=== PATIENT | male | born 1990 | race Caucasian/White ===

== ENCOUNTER 2017-04-05 15:02 | Inpatient (IN) | payer SELFPAY ==
[~2017-04-05] VITALS: Ht 165.1 cm; Wt 106.6 kg
[2017-04-05 15:05] VITALS: BP_SYST 181
--- NOTE | 2017-04-05 15:05 | NUR ---
Placed in room 08 . Placed on desk monitor, blood pressure machine and pulse oximeter. To gown for exam. Side rails up. Report given to Camden NICK
--- NOTE | 2017-04-05 15:10 | NUR ---
ER at bedside examining patient.
[2017-04-05] MEDS ORDERED: FOLIC ACID 1 MG, THIAMINE HCL 100 MG, MAGNESIUM SULFATE 1 GM, MVI 10 ML in NACL 0.9% 1,... IV ONE (15:15)
--- NOTE | 2017-04-05 15:15 | NUR ---
Pt presents to ER c/o sob, numbness in bilateral upper and lower extremities, and neck pain. Pt reports excessive alcohol consumption over the past few days. Pt rates pain 10/10. Pt denies any significant mecdial history. Pt in no acute respiratory distress; AOX4; NKDA; family at bedside.
[2017-04-05] MEDS ORDERED: LORazepam 2 MG/ML VIAL (FOR ER USE) IVP ONE (15:45)
[2017-04-05 15:48] LABS: EOSINOPHILS # (AUTO) 0.2 K/uL (0.0-0.4); MONOCYTES # (AUTO) 0.8 K/uL (0.0-1.0); RED CELL DISTRIBUTION WIDTH 11.4 % (9.0-15.0)
--- NOTE | 2017-04-05 16:00 | NUR ---
Patient transported to radiology via gurney, accompanied by rad staff.
[2017-04-05] MEDS ORDERED: THIAMINE HCL 100 MG/ML VIAL ONE (16:09)
[2017-04-05] MEDS ORDERED: FOLIC ACID 5 MG/ML VIAL IV ONE (16:09)
[2017-04-05] MEDS ORDERED: MVI 10 ML VIAL IV ONE (16:09)
[2017-04-05] MEDS ORDERED: MAGNESIUM SULFATE 1 GM/2 ML VIAL ONE (16:09)
[2017-04-05 16:28] LABS: BASOPHILS % (AUTO) 0.3 % (0.0-2.0); EOSINOPHILS % (AUTO) 1.6 % (0.0-4.0); HEMATOCRIT 50.6 % (36-54); HEMOGLOBIN 17.1 g/dL (14.0-18.0); LYMPHOCYTES # (AUTO) 0.6 K/uL (1.0-5.5); LYMPHOCYTES % (AUTO) 6.2 % (20.5-51.5); MEAN CORPUSCULAR HEMOGLOBIN 32 pg (27-31); MEAN CORPUSCULAR HGB CONC 34 % (32-36); MEAN CORPUSCULAR VOLUME 95 fL (79.0-98.0); MONOCYTES % (AUTO) 8.1 % (1.7-9.3); NEUTROPHILS # (AUTO) 8.2 K/uL (1.8-7.7); NEUTROPHILS % (AUTO) 83.8 % (40.0-70.0); PLATELET COUNT (AUTO) 254 K/uL (130-430); RED BLOOD CELL COUNT(AUTO) 5.33 MIL/uL (4.2-6.2); WHITE BLOOD COUNT (AUTO) 9.8 K/uL (4.8-10.8)
--- NOTE | 2017-04-05 16:30 | NUR ---
Returned from radiology, back to [facility].
--- NOTE | 2017-04-05 16:33 | NUR ---
influenza swab taken and sent over to lab.
[2017-04-05 16:51] LABS: ANION GAP 16 (5-15); CALCIUM 10.3 mg/dL (8.4-11.0); CHLORIDE 94 mmol/L (98-107); CREATININE 1.22 mg/dL (0.55-1.30); GLUCOSE 117 mg/dL (70-99); POTASSIUM 3.3 mmol/L (3.5-5.1); SODIUM SERUM 131 mmol/L (136-145); UREA NITROGEN, BLOOD 4 mg/dL (8-21)
[2017-04-05 16:55] LABS: ALANINE AMINOTRANSFERASE 234 U/L (12-78); ALBUMIN 4.1 g/dL (3.4-4.8); ASPARTATE AMINOTRANSFERASE 111 U/L (10-37); TOTAL BILIRUBIN 0.6 mg/dL (0.0-1.0)
[2017-04-05 16:57] LABS: ALCOHOL, BLOOD < 3 mg/dL (<10); GFR AFRICAN AMERICAN 94 mL/min (>90)
[2017-04-05 17:17] LABS: ACETAMINOPHEN < 1 ug/mL (1-30)
--- NOTE | 2017-04-05 17:29 | NUR ---
Pt medicated and tolerating well; will continue to monitor.
--- NOTE | 2017-04-05 19:30 | NUR ---
Patient resting quietly in no acute distress. junior engineer continues to show sinus tachycardia. Awaiting dispo.
--- NOTE | 2017-04-05 20:00 | NUR ---
Dr Juárez advised of patient's temp of 101.5. Orders for Tylenol 1 gram PO for fever. Per Dr Juárez, no need to get Lactic Acid at this time.
[2017-04-05] MEDS ORDERED: ACETAMINOPHEN 500 MG TABLET PO ONE (20:30)
--- NOTE | 2017-04-05 21:00 | NUR ---
Assessment remains unchanged, awaiting transport to the floor.
--- NOTE | 2017-04-05 21:15 | NUR ---
Transfer to tele room 128-B via ACLS protocol. Licensed nurse present. IV present no signs or symptoms of infiltration.
--- NOTE | 2017-04-05 21:15 | NUR ---
Admission Note Received patient from ER with diagnosis of Alcohol Withdrawel, Tachycardia, Fever. Initial Plan of Care discussed-patient his verbalized understanding. Patient's mother at bedside. Oriented to room, call light, pain management and safety.
--- NOTE | 2017-04-05 21:15 | NUR ---
Note kristal in ED - 04/05/17 at 2138 by SUSANA Patient will be admitted to care of []. Admitted to [] unit. Will go to room []. Belongings list completed. Summary report printed. Report will be given at bedside.
--- NOTE | 2017-04-05 21:15 | NUR ---
Patient will be admitted to care of Dr Maria. Admitted to tele unit. Will go to room 128-B. Belongings list completed. Summary report printed. Report will be given at bedside.
[2017-04-05 21:30] VITALS: BP_SYST 147
--- NOTE | 2017-04-05 21:35 | NUR ---
Opening notes Received report from admit nurse Evangelina, Patient in bed with mother at bedside. Patient AAOx4 with stable gait. Patient stated that he was doing ok and Mother will be here for a while.
[2017-04-05 23:00] VITALS: BP_SYST 147
[2017-04-05] MEDS ORDERED: IPRATROPIUM/ALBUTEROL SULFATE 3 ML AMPUL.NEB INH SCH (23:00)
[2017-04-05] MEDS: IPRATROPIUM/ALBUTEROL SULFATE 3 ML AMPUL.NEB INH SCH (23:00)
[2017-04-05] MEDS ORDERED: LR 1,000 ML IV SCH (23:00)
[2017-04-05] MEDS ORDERED: POTASSIUM CHLORIDE 20 MEQ TAB.PRT.SR PO ONE (23:15)
[2017-04-05] MEDS ORDERED: PROMETHAZINE-DM 6.25 MG-15 MG/5 ML UDC PO PRN (23:15)
[2017-04-05] MEDS ORDERED: LORazepam 2 MG/ML VIAL IVP PRN (23:15)
[2017-04-05] MEDS ORDERED: AZITHROMYCIN 500 MG/VIAL (ZITHROMAX) IV ONE (23:24)
[2017-04-05] MEDS ORDERED: cefTRIAXone 1 GM IVPB PREMIX 50 ML IV ONE ×2 (23:24→23:47)
[2017-04-05] MEDS ORDERED: cefTRIAXone 1 GM in D5W 50 ML IV ONE (23:30)
[2017-04-05] MEDS ORDERED: PANTOPRAZOLE SODIUM 40 MG TAB PO ONE (23:30)
[2017-04-05] MEDS ORDERED: AZITHROMYCIN 500 MG in NS 250 ML IV ONE (23:30)
--- NOTE | 2017-04-06 | NUR ---
Breathing Tx Patient received breathing Tx per MD orders.
--- NOTE | 2017-04-06 00:26 | NUR ---
Anxiety Patient c/o feeling anxiety. Offered Ativan and educated patient ion medication. Patient said yes to Ativan and was given. Educated patient immigration case worker light and uses. Patient in bed and call light with patient. Will continue to monitor.
[2017-04-06] MEDS ORDERED: chlordiazePOXIDE HCL 25 MG CAPSULE PO ONE (00:30)
[2017-04-06 01:04] VITALS: BP_SYST 133
--- NOTE | 2017-04-06 02:49 | NUR ---
Rounds Patient in bed sleeping. No SOB or acute distress noted. Bed in lowest position and call light with patient.
[2017-04-06] MEDS: IPRATROPIUM/ALBUTEROL SULFATE 3 ML AMPUL.NEB INH SCH ×4 (03:00→15:20)
--- NOTE | 2017-04-06 04:22 | NUR ---
Rounds Patient in bed sleeping. No facial grimacing or acute distress noted. Bed in lowest position and call light with patient.
--- NOTE | 2017-04-06 06:48 | NUR ---
Closing Notes Patient i bed sleeping with no facial grimacing or SOB noted. No acute distress noted at this time. bed in ow position and call light with patient. Will endorse to day shift nurse patient's plan of care.
[2017-04-06 07:55] VITALS: BP_SYST 163
--- NOTE | 2017-04-06 08:00 | NUR ---
ASSUMPTION OF CARE: RECEIVED PT A/A/OX4, DX:INADEQUATE PERFUSION, R/T TACHYCARDIA, ETOH WITH DRAWL, FEVER, NO C/O PAIN, NO S/S OF DISTRESS, AFEBRILE, SLIGHTLY ELEVATE BP OF 163/91, IV SITE INTACT, PATENT, NO REDNESS OR SWELLING, BREATH SOUNDS ARE CLEAR, BREATHING UNLABORED, EYES PERRLA, ORIENTED TO UNIT, CALL LIGHT PLACED WITHIN REACH, WILL CONT' TO MONITOR AND ASSESS.
--- NOTE | 2017-04-06 08:45 | NUR ---
RADIOLOGY: PT OFF UNIT VIA WHEELCHAIR TO RADIOLOGY FOR CHEST X RAY, CONDITION IS STABLE, WILL CONT' WITH PLAN OF CARE.
[2017-04-06] MEDS ORDERED: THIAMINE HCL 100 MG TABLET PO SCH (09:00)
[2017-04-06] MEDS ORDERED: PANTOPRAZOLE SODIUM 40 MG TAB PO SCH (09:00)
--- NOTE | 2017-04-06 09:00 | NUR ---
ELECTRICAL CHECKOUT MECHANIC: MORNING MEDS GIVEN, PER ORDERED BY Uzair, TOLERATED WELL, WILL CONT' TO MONITOR AND ASSESS.
[2017-04-06] MEDS: chlordiazePOXIDE HCL 25 MG CAPSULE PO SCH ×2 (09:11→14:46)
[2017-04-06 12:00] VITALS: BP_SYST 136
--- NOTE | 2017-04-06 12:00 | NUR ---
NURSES NOTES: PT OBSERVED WHILE OOB, AMBULATING TO BATHROOM WITH STEADY GAIT, ASSISTED BACK TO BED, NO C/O PAIN OR DISCOMFORT, VS WNL, CALL LIGHT PLACED WITHIN REACH, WILL CONT' TO MONITOR AND ASSESS.
--- NOTE | 2017-04-06 15:45 | NUR ---
FEVER: PT HAS WKVD=406.9, AND XG=[id number], DR LEYVA NOTIFIED, NEW ORDERS GIVEN, WILL CONT' WITH PLAN OF CARE.
[2017-04-06 16:00] VITALS: BP_SYST 143
[2017-04-06] MEDS ORDERED: OSELTAMIVIR PHOSPHATE 75 MG CAPSULE PO ONE (16:00)
[2017-04-06] MEDS ORDERED: ACETAMINOPHEN 325 MG TABLET PO PRN (16:00)
[2017-04-06 16:21] VITALS: BP_SYST 143
--- NOTE | 2017-04-06 17:00 | NUR ---
DISCHARGE: PT HAS ORDER FOR DISCHARGE TO HOME, TEMP DECREASED TO 99.5, INSTRUCTIONS GIVEN WITH PRESCRIPTION AND NEXT APPT DATE, VERBALIZES UNDERSTANDING, IV DISCONTINUED, TOLERATED WELL, MOTHER AT BEDSIDE TO ACCOMPANY AND TRANSPORT HOME, CONDITION IS STABLE, WILL CONT' WITH POC.
[2017-04-06] MEDS ORDERED: AZITHROMYCIN 500 MG in NS 250 ML IV SCH (21:00)
[2017-04-06] MEDS ORDERED: cefTRIAXone 1 GM in D5W 50 ML IV SCH (21:00)
== END 2017-04-06 18:10 | disposition home or self-care (01) | DRG 897 ==
LOC: SED 15:02 → STU 16:35
PROVIDERS: ADMIT Internal Medicine; ATTEND Internal Medicine
DX: F10.239 Alcohol dependence with withdrawal, unspecified (principal); E66.9 Obesity, unspecified; F41.9 Anxiety disorder, unspecified; J06.9 Acute upper respiratory infection, unspecified; Y90.0 Blood alcohol level of less than 20 mg/100 ml; Z68.39 Body mass index [BMI] 39.0-39.9, adult
CPT/HCPCS: 36415; 70450-TC; 71046; 72050-TC; 80053; 85025; 86710; 87040-TC; 93005; 94640; 96365; 96366; 96375; 99285; G0480; G0481; G0482; G9035; J0456; J0696; J2060; J3411; J3475; J3490; J7030; J7050; J7060; J7120

== ENCOUNTER 2019-06-06 05:25 | Emergency (ER) | payer MEDICAID ==
[~2019-06-06] VITALS: Ht 175.3 cm; Wt 108.9 kg
[2019-06-06 05:25] VITALS: BP_SYST 120
--- NOTE | 2019-06-06 05:25 | NUR ---
Placed in room 7 . Placed on cardiac care nurse, blood pressure machine and pulse oximeter. To gown for exam. Side rails up. Report given to PARK Liu.
[2019-06-06] MEDS ORDERED: KETOROLAC TROMETHAMINE 30 MG VIAL IVP ONE (05:45)
[2019-06-06] MEDS ORDERED: ONDANSETRON HCL 4 MG/2 ML VIAL IVP ONE (05:45)
[2019-06-06] MEDS ORDERED: NACL 0.9% 1,000 ML IV ONE (05:45)
--- NOTE | 2019-06-06 05:55 | NUR ---
Dr. Juárez bedside for pt eval
--- NOTE | 2019-06-06 06:01 | NUR ---
Pt BIB family to ED C/O abdominal pain RUQ and chest pain x 1 day. The pain is sharp and located in the RUQ. No other complaints, pt with hx of anxiety. VSS no s/s of acute distress Resting on gurney rails up
[2019-06-06 06:23] LABS: BASOPHILS # (AUTO) 0.1 K/uL (0.0-0.2); BASOPHILS % (AUTO) 0.6 % (0.0-2.0); EOSINOPHILS # (AUTO) 0.3 K/uL (0.0-0.4); HEMATOCRIT 46.5 % (36-54); HEMOGLOBIN 15.8 g/dL (14.0-18.0); LYMPHOCYTES # (AUTO) 5.5 K/uL (1.0-5.5); LYMPHOCYTES % (AUTO) 42.9 % (20.5-51.5); MEAN CORPUSCULAR HEMOGLOBIN 33 pg (27-31); MEAN CORPUSCULAR HGB CONC 34 % (32-36); MEAN CORPUSCULAR VOLUME 97 fL (79.0-98.0); MONOCYTES # (AUTO) 0.7 K/uL (0.0-1.0); MONOCYTES % (AUTO) 5.5 % (1.7-9.3); NEUTROPHILS # (AUTO) 6.3 K/uL (1.8-7.7); PLATELET COUNT (AUTO) 262 K/uL (130-430); RED BLOOD CELL COUNT(AUTO) 4.81 MIL/uL (4.2-6.2); WHITE BLOOD COUNT (AUTO) 12.9 K/uL (4.8-10.8)
[2019-06-06 06:28] LABS: CALCIUM 8.9 mg/dL (8.4-11.0); CREATININE 1.07 mg/dL (0.55-1.30); POTASSIUM 3.4 mmol/L (3.5-5.1)
[2019-06-06 06:33] LABS: INR 0.9 (0.80-1.20); PROTHROMBIN TIME 9.5 SECS (9.5-12.5)
[2019-06-06 06:34] LABS: ALBUMIN 3.8 g/dL (3.4-4.8); TOTAL BILIRUBIN 0.7 mg/dL (0.0-1.0)
--- NOTE | 2019-06-06 06:35 | NUR ---
VSS no s/s of acute distress. ED Registration working with pt bedside to answer paperwork questions.
[2019-06-06 07:00] LABS: CREATINE KINASE MB 8.4 ng/mL (0-3.6)
--- NOTE | 2019-06-06 07:20 | NUR ---
report recevied from Noe NICK. Pt continue to c/o of SOB. Pt is current o2 sat is 100% on RA. Will continue to monitor.
--- NOTE | 2019-06-06 08:10 | NUR ---
pt reports feeling better
[2019-06-06 09:08] VITALS: BP_SYST 120
--- NOTE | 2019-06-06 09:08 | NUR ---
Patient given written and verbal discharge instructions and verbalizes understanding. ER MD discussed with patient the results and treatment provided. Patient in stable condition. ID arm band removed. IV removed Patient educated on pain management and to follow up with PMD. Pain Scale 0/10. Opportunity for questions provided and answered. Medication side effect fact sheet provided.
== END 2019-06-06 09:08 | disposition home or self-care (01) ==
LOC: SED 05:25
DX: K76.0 Fatty (change of) liver, not elsewhere classified (principal); R10.11 Right upper quadrant pain; F10.20 Alcohol dependence, uncomplicated; F41.9 Anxiety disorder, unspecified; F17.290 Nicotine dependence, other tobacco product, uncomplicated; Z71.6 Tobacco abuse counseling; Y90.9 Presence of alcohol in blood, level not specified
CPT/HCPCS: 36415; 71045; 74176; 80053; 81002; 82150; 82550; 82553; 83605; 83690; 84484; 85025; 85610; 85730; 87040; 93005; 96374; 96375; 99285; J1885; J2405; J7030